=== PATIENT | female | born 1935 ===

== ENCOUNTER → 2018-05-24 13:33 | Outpatient (REF) | payer MEDICARE, OTHER, SELFPAY | LOC: LAB 13:33 | PROVIDERS: Visit Provider Otolaryngology Facial Plastic Surgery | DX: L30.9 Dermatitis, unspecified (principal); F45.8 Other somatoform disorders; K11.23 Chronic sialoadenitis; J34.0 Abscess, furuncle and carbuncle of nose | CPT/HCPCS: 87070; 87075; 87205 ==